=== PATIENT | male | born 1995 | race Two or more races ===

== ENCOUNTER 2017-10-11 21:28 | Emergency (ER) | payer OTHER | END 2017-10-11 23:47 | disposition home or self-care (01) | LOC: ER 21:28 | DX: S30.812A Abrasion of penis, initial encounter (principal); X58.XXXA Exposure to other specified factors, initial encounter; Y93.89 Activity, other specified; Y92.89 Other specified places as the place of occurrence of the external cause; Y99.8 Other external cause status | CPT/HCPCS: 99281 ==